=== PATIENT | female | born 1995 | race Caucasian/White ===

== ENCOUNTER 2016-11-19 10:09 | Emergency (ER) | payer MEDICAID, OTHER ==
[~2016-11-19] VITALS: Ht 162.6 cm; Wt 51.9 kg
[2016-11-19 10:14] VITALS: BP 140/87; PULSE 87; RESP 16; TEMP 98.2; O2SAT 98
[2016-11-19] MEDS ORDERED: LEVO-242 PO (10:24)
--- NOTE | 2016-11-19 10:36 | PD ---
HPI Chief Complaint: Abdominal Pain Time Seen by Provider: 10:31 Travel History International Travel<30 days: No Contact w/Intl Traveler<30days: No Traveled to known affect area: No History of Present Illness HPI Young female who presents with epigastric discomfort for 3 days. Aggravated with bad posture bending over and laying flat on her back. History of reflux usually treated with Tums. 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 Denies any nausea or vomiting. Denies any urinary or bowel changes. Denies . Last menses 1 week ago. PFSH Past Medical History Medical History: Denies Significant Hx Diminished Hearing: No Influenza Vaccination: No ?: Not LMP: 11/09/16 Past Surgical History Surgical History: No Previous Surgery Social History Alcohol Use: No Tobacco Use: No Allergies-Medications (Allergen,Severity, Reaction): Coded Allergies: No Known Allergies (Unverified , 11/19/16) Reported Meds & Prescriptions Reported Meds & Active Scripts Active Protonix (Pantoprazole Sodium) 40 Mg Tab 40 Mg PO DAILY Reported Lutera (Levonorgestrel-Ethinyl Estradiol) 0.1-20 mg-mcg Tab 1 Tab PO DAILY Review of Systems General / Constitutional: No: Fever Eyes: No: Visual changes HENT: No: Headaches Cardiovascular: No: Chest Pain or Discomfort Respiratory: No: Shortness of Breath Gastrointestinal: Positive: Abdominal Pain Genitourinary: No: Dysuria Musculoskeletal: No: Pain Skin: No Rash Neurologic: No: Weakness Psychiatric: No: Depression Endocrine: No: Polydipsia Hematologic/Lymphatic: No: Easy Bruising Physical Exam Narrative GENERAL: Well-nourished, well-developed patient. SKIN: Focused skin assessment warm/dry. HEAD: Normocephalic. EYES: No scleral icterus. No injection or drainage. NECK: Supple, trachea midline. No JVD or lymphadenopathy. CARDIOVASCULAR: Regular rate and rhythm without murmurs, gallops, or rubs. RESPIRATORY: Breath sounds equal bilaterally. No accessory muscle use. GASTROINTESTINAL: Abdomen soft, non-tender, nondistended. Palpation of the epigastric region reveals uncomfortableness but no pain MUSCULOSKELETAL: No cyanosis, or edema. BACK: Nontender without obvious deformity. No CVA tenderness. Data Data Last Documented VS Vital Signs Date Time Temp Pulse Resp B/P Pulse Ox O2 Delivery O2 Flow Rate FiO2 11/19/16 10:14 98.2 87 16 140/87 98 Orders Al-Mag Hy-Si 40-40-4 Mg/Ml Liq (Mag-Al P (11/19/16 10:45) Lidocaine 2% Viscous (Xylocaine 2% Visco (11/19/16 10:45) Pantoprazole (Protonix) (11/19/16 10:45) Famotidine (Pepcid) (11/19/16 10:45) MDM Medical Decision Making Medical Screen Exam Complete: Yes Emergency Medical Condition: Yes Differential Diagnosis Gastritis, GERD, abdominal muscle strain Narrative Course Assessment and plan discussed with patient and boyfriend at bedside. GI cocktail provided with improvement of discomfort. Diagnosis Primary Impression: Gastritis Qualified Code: K29.70 - Gastritis, presence of bleeding unspecified, unspecified chronicity, unspecified gastritis type Patient Instructions: General Instructions Additional Instructions: Encouraged avoiding aggravating factors of reflux including but not limited to alcohol tobacco late large meals and weight. Discussed the possibility this could be viral versus chronic reflux. Follow-up with PCP. Zantac as prescribed. Med/Other Pt SpecificInfo: Prescription(s) given Scripts Pantoprazole (Protonix)40 Mg Tab40 Mg PO DAILY #15 TAB Ref 0 Prov:Paulo Vazquez MD 11/19/16 Disposition: 01 DISCHARGE HOME Condition: Good Paulo Vazquez MD Nov 19, 2016 10:36 Paulo Vazquez MD Nov 19, 2016 10:36
[2016-11-19] MEDS ORDERED: PANTOPRAZOLE SOD 40 MG DELAYED RELEASE TAB PO ONE (10:45)
[2016-11-19] MEDS ORDERED: ALUMINUM/MAGNESIUM/SIMETH 30 ML CUP PO ONE (10:45)
[2016-11-19] MEDS ORDERED: FAMOTIDINE 20 MG TAB PO ONE (10:45)
[2016-11-19] MEDS ORDERED: LIDOCAINE VISCOUS 2% SOLN 15 ML UDC PO ONE (10:45)
[2016-11-19] MEDS ORDERED: PROT40TA PO (11:02)
== END 2016-11-19 11:09 | disposition home or self-care (01) ==
LOC: PHED 10:09
DX: K29.70 Gastritis, unspecified, without bleeding (principal)
CPT/HCPCS: 99283